=== PATIENT | female | born 1970 | race Caucasian/White ===

== ENCOUNTER → 2020-03-29 | Outpatient (CLI) | payer BC ==
--- NOTE | 2020-03-29 20:45 | CONS ---
CONSULTATION REASON FOR CONSULTATION: Fragmented sleep. This is a 50-year-old pleasant female patient who is waking up multiple times in the middle of night. She goes to bed early, as her works early hours and he goes to bed early, too. Based on that, the patient has been trying to go to bed with her around 9 p.m., waking up at 6 a.m. in the morning. She is waking up at least 3 times in the middle of the night. Exact reason is not clear. She snores. She has an overbite. She has a Mallampati class III to IV. No grinding of the teeth. No symptoms of RLS or restlessness in the lower extremities. She does not wake up gasping or choking. She prefers to sleep in different body positions, mainly on her side. Her weight has been stable. No anxiety. No depression. No nocturnal heartburn, chest pain or shortness of breath. She has a comfortable bedroom. No excessive temperature or heat. No late dinners. No late exercises. No television in the bedroom. She is going through some early signs of menopause. PAST MEDICAL HISTORY: Hypertension. PAST SURGICAL HISTORY: Past surgical history includes hysterectomy and surgery on her kidney/ureter back in 2004. DRUG ALLERGIES: CODEINE. OUTPATIENT MEDICATION LIST: Outpatient medication list includes hydrochlorothiazide 25 daily, amlodipine 5 mg p.o. daily, coenzyme Q. SOCIAL HISTORY: Nonsmoker. No history of alcoholism. No history of IV drugs. FAMILY HISTORY: Negative for sleep apnea. REVIEW OF SYSTEMS: Fourteen-point review of system was done. Positive findings were all mentioned above in the history of present illness. PHYSICAL EXAMINATION: BP is 158/90, pulse 70, respirations 16, temperature 98.2, saturation 98% on room air. Height is 5 feet 8 inches, weight is 181 and BMI 26.9. Wayzata score is 3. Neck size is 14. Wayzata score is 3. GENERAL APPEARANCE: Calm, comfortable. HEAD: Atraumatic, normocephalic. NECK: Supple. No JVD. No goiter or neck masses. Mallampati class III to IV. Obvious overbite. LUNGS: Clear to auscultation. HEART: Heart sounds are regular rate and rhythm. Normal S1, S2. No S3, S4. No murmurs. ABDOMEN: Soft, nontender. No organomegaly. EXTREMITIES: No edema. No cyanosis or clubbing. IMPRESSION: 1. Snoring along with some symptoms of sleep fragmentation, as the patient wakes up at least 3-4 times in the middle of the night; clear reasons are not known. This could be related to a sleep breathing disorder. The patient may be having some apneic episodes, especially during REM sleep, which would wake her up from sleep. Other causes cannot be ruled out. I noticed that the patient has been going to bed early, and this obviously lowers her overall sleep efficiency and gives her opportunities to wake up in the middle of the night. This could be one reason, as the patient has extended her number of hours of sleep. Menopause may be another cause. 2. Hypertension. PLAN: 1. Do a home sleep study. 2. Check the patient for sleep breathing disorder. 3. Will decide on treatment accordingly. She may benefit from an oral appliance if mild to moderate obstructive sleep apnea is identified. Severe sleep apnea may need to be treated with CPAP therapy. 4. Issues related sleep hygiene were discussed. 5. Discussed also the need for restricting the number of hours that she spends in bed. This will obviously improve her sleep efficiency and may lower the nocturnal arousals. I answered all her questions to her satisfaction. For now, we will do a home sleep study and decide on treatment accordingly. MMODL / IJN: [id number] /
== END | disposition home or self-care (01) ==
LOC: SLEEP 16:07
PROVIDERS: ATTEND Internal Medicine Critical Care Medicine
DX: G47.9 Sleep disorder, unspecified (principal); I10 Essential (primary) hypertension; Z78.0 Asymptomatic menopausal state; Z79.899 Other long term (current) drug therapy
CPT/HCPCS: 99201